=== PATIENT | female | born 1955 | race Caucasian/White ===

== ENCOUNTER → 2017-09-19 | Outpatient (CLI) | payer OTHER | LOC: M RAD 12:37 | DX: J32.4 Chronic pansinusitis (principal); J01.30 Acute sphenoidal sinusitis, unspecified; H70.211 Acute petrositis, right ear ==

== ENCOUNTER → 2019-12-12 | Outpatient (REF) | payer MEDICARE | LOC: M LAB REF 17:59 | PROVIDERS: ATTEND Physician Assistant | DX: L57.0 Actinic keratosis (principal) | CPT/HCPCS: 11102; 11103; 88305; G0463 ==

== ENCOUNTER → 2020-06-22 | Outpatient (REF) | payer MEDICARE | LOC: M LAB REF 17:41 | PROVIDERS: ATTEND Dermatology | DX: L72.0 Epidermal cyst (principal) ==